=== PATIENT | male | born 1975 ===

== ENCOUNTER 2016-05-31 03:40 | Inpatient (IN) | payer MEDICAID, OTHER ==
--- NOTE | 2016-05-31 04:10 | C.PDOC ---
Addendum entered and electronically signed by Mary Manning PA 05/31/16 07 :26: Addendum Addendum: 05/31/16 07:05 Received s/o to f/u abdominal ultrasound and re-evaluate pt. Original Note: History Of Present Illness 41 year old patient presents to the ED complaining of epigastric and RUQ pain since yesterday. Patient currently denies nausea, vomiting, diarrhea or urinary symptoms. Pt reports pancreatitis in 2007 and states this pain feels simlar. Time Seen by Provider: 05/31/16 04:06 Chief Complaint (Nursing): Abdominal Pain History Per: Patient History/Exam Limitations: no limitations Onset/Duration Of Symptoms: Days (1) Current Symptoms Are (Timing): Still Present Context: Other Severity: Mild Pain Scale Rating Of: 3 Quality Of Discomfort: "Pain" Exacerbating Factors: None Alleviating Factors: None Last Bowel Movement: Today Recent travel outside of the [place]: No Past Medical History Reviewed: Historical Data, Nursing Documentation, Vital Signs Vital Signs: Last Vital Signs Temp 98.4 F 05/31/16 06:46 Pulse 93 H 05/31/16 06:46 Resp 18 05/31/16 06:46 BP 148/88 05/31/16 06:46 Pulse Ox 95 05/31/16 06:46 Surgical History: Appendectomy (2000) Family History: States: Unknown Family Hx - Social History Hx Alcohol Use: Yes Hx Substance Use: No - Immunization History Hx Tetanus Toxoid Vaccination: No Hx Influenza Vaccination: No Hx Pneumococcal Vaccination: No Review Of Systems Except As Marked, All Systems Reviewed And Found Negative. Gastrointestinal: Positive for: Abdominal Pain (epigastric and RUQ). Negative for: Nausea, Vomiting, Diarrhea Genitourinary: Negative for: Dysuria Physical Exam - Physical Exam Appears: Non-toxic, No Acute Distress Skin: Warm, Dry Eye(s): bilateral: Normal Inspection Ear(s): Bilateral: Normal Nose: Normal Throat: Normal Chest: Symmetrical Cardiovascular: Rhythm Regular Respiratory: Normal Breath Sounds, No Rales, No Rhonchi, No Wheezing Gastrointestinal/Abdominal: Soft, Tenderness (epigastric, RUQ), No Distention, No Guarding, No Rebound, Other ((+)mid-abdominal scar post appendectomy (-) Mcneil's sign) Back: No CVA Tenderness Extremity: Normal ROM Neurological/Psych: Oriented x3, Normal Speech, Normal Cognition Gait: Steady ED Course And Treatment - Laboratory Results Result Diagrams: 05/31/16 06:19 O2 Sat by Pulse Oximetry: 95 (RA) Progress Note: Labs ordered. Pepcid given. Patietn is comfortable and sleeping. Patient feels improvement of abdominal pain. Patient is discharged and instructed to follow up with PMD. Return if symptoms worsen. Disposition - Disposition Disposition: HOME/ ROUTINE Disposition Time: 06:54 Condition: STABLE - Clinical Impression Clinical Impression: Upper abdominal pain - PA / STAFF REGISTERED NURSE / Resident Statement MD/DO has reviewed & agrees with the documentation as recorded. - Scribe Statement The provider has reviewed the documentation as recorded by the Scribe Jeanette Osborn All medical record entries made by the Scribe were at my direction and personally dictated by me. I have reviewed the chart and agree that the record accurately reflects my personal performance of the history, physical exam, medical decision making, and the department course for this patient. I have also personally directed, reviewed, and agree with the discharge instructions and disposition. Physician Patient Turnover Patient Signed Over To: Mary Manning Handoff Comments: Pending US and CBC
[2016-05-31 04:14] LABS: RBC URINE < 1 /hpf (0-3); URINE BILIRUBIN NEGATIVE (NEGATIVE); URINE BLOOD NEGATIVE (NEGATIVE); URINE COLOR Yellow (YELLOW); URINE GLUCOSE (UA) 3+ mg/dL (Normal); URINE KETONE 2+ mg/dL (NEGATIVE); URINE LEUKOCYTE ESTERASE NEG Leu/uL (Negative); URINE PROTEIN 1+ mg/dL (NEGATIVE); URINE UROBILINOGEN NORMAL mg/dL (0.2-1.0); WBC URINE 1 /hpf (0-5)
[2016-05-31 04:44] LABS: CHLORIDE 94 mmol/L (98-107); POTASSIUM 3.7 mmol/L (3.6-5.2); SODIUM 128 mmol/L (132-148)
[2016-05-31 04:46] LABS: AST/SGOT 14 U/L (17-59); BILIRUBIN,TOTAL 1.4 mg/dL (0.2-1.3); CARBON DIOXIDE 16 mmol/L (22-30); GFR AFRICAN-AMERICAN > 60
[2016-05-31 04:47] LABS: ALB/GLOB RATIO 0.6 (1.0-2.1); ALKALINE PHOSPHATASE 209 U/L (38-126); ALT/SGPT 35 U/L (21-72); BLOOD UREA NITROGEN 12 mg/dL (9-20); CALCIUM 8.7 mg/dl (8.6-10.4); GLUCOSE,RANDOM 257 mg/dL (75-110); TOTAL PROTEIN 7.3 g/dL (6.3-8.3)
[2016-05-31 05:39] LABS: BASO # 0.1 K/uL (0.0-0.2); EOS # 0.3 K/uL (0.0-0.7); WHITE BLOOD COUNT 15.1 K/uL (4.8-10.8)
[2016-05-31] MEDS ORDERED: Sodium Chloride 0.9% 1,000 ML ONE ×2 (05:57→08:44)
[2016-05-31] MEDS ORDERED: Sodium Chloride 0.9% 1,000 ML IV ONE ×3 (05:58→08:15)
[2016-05-31 06:28] LABS: CHLORIDE 94 mmol/L (98-107)
[2016-05-31 06:29] LABS: POTASSIUM 3.7 mmol/L (3.6-5.2); SODIUM 130 mmol/L (132-148)
[2016-05-31 06:31] LABS: BILIRUBIN,TOTAL 1.2 mg/dL (0.2-1.3); GFR AFRICAN-AMERICAN > 60
[2016-05-31 06:32] LABS: ALB/GLOB RATIO 0.8 (1.0-2.1); ALKALINE PHOSPHATASE 175 U/L (38-126); ALT/SGPT 23 U/L (21-72); AST/SGOT 12 U/L (17-59); BLOOD UREA NITROGEN 10 mg/dL (9-20); CALCIUM 7.7 mg/dl (8.6-10.4); CARBON DIOXIDE 17 mmol/L (22-30); GLUCOSE,RANDOM 224 mg/dL (75-110); TOTAL PROTEIN 6.5 g/dL (6.3-8.3)
[2016-05-31] MEDS ORDERED: Aluminum Hydroxide/Magnesium Hydroxide Susp (30 mL) PO STA (06:52)
[2016-05-31 06:57] LABS: BASO % 0.7 % (0.0-2.0); HEMATOCRIT 37.2 % (35.0-51.0); LYMPH % 13.4 % (20.0-40.0); MEAN CELL VOLUME 92.6 fL (80.0-94.0); MEAN CORPUSCULAR HEMOGLOBIN 32.4 pg (27.0-31.0); MEAN PLATELET VOLUME 8.6 fL (7.2-11.7); MONO # 1.1 K/uL (0.0-0.8); MONO % 7.3 % (0.0-10.0); NRBC % 0.3 % (0.0-2.0); RED CELL DISTRIBUTION WIDTH 12.3 % (11.5-14.5)
[2016-05-31] MEDS ORDERED: Aluminum Hydroxide/Magnesium Hydroxide Susp (30 mL) ONE (07:02)
[2016-05-31 08:01] LABS: VENOUS BLOOD GAS BASE EXCESS 1.5 mmol/L (0.0-2.0); VENOUS BLOOD GAS PCO2 46 mmHg (40-60); VENOUS BLOOD PH 7.38 (7.32-7.43)
--- NOTE | 2016-05-31 08:59 | US ---
Right upper quadrant abdominal ultrasound History: Right upper quadrant abdominal pain. Technique: Real-time sonography was performed through the right upper quadrant of the abdomen. Findings: Liver: 18.5 centimeters in length. Prominent. Increased echogenicity suggestive for fatty infiltration. Gallbladder appears preserved. Common bile duct measures 3.2 millimeters, within normal limits. Pancreas not well visualized. Visualized aorta and IVC are grossly preserved. Right kidney: 12.4 x 5.1 x 6.6 centimeters, within normal limits. Impression: Prominent and echogenic liver which may represent fatty infiltration. Clinical correlation. Pancreas not well visualized.
[2016-05-31 11:20] LABS: CHLORIDE 99 mmol/L (98-107); POTASSIUM 3.7 mmol/L (3.6-5.2); SODIUM 131 mmol/L (132-148)
[2016-05-31 11:22] LABS: AST/SGOT 12 U/L (17-59); CARBON DIOXIDE 14 mmol/L (22-30); GFR AFRICAN-AMERICAN > 60
[2016-05-31 11:23] LABS: ALB/GLOB RATIO 0.7 (1.0-2.1); ALKALINE PHOSPHATASE 153 U/L (38-126); ALT/SGPT 21 U/L (21-72); BLOOD UREA NITROGEN 8 mg/dL (9-20); CALCIUM 7.6 mg/dl (8.6-10.4); GLUCOSE,RANDOM 223 mg/dL (75-110); TOTAL PROTEIN 6.5 g/dL (6.3-8.3)
[2016-05-31 11:38] LABS: ABG ALLEN TEST POS; DRAW SITE RR
[2016-05-31] MEDS: Sodium Chloride 0.9% 1,000 ML IV SCH ×2 (13:50→21:25)
[2016-05-31] MEDS ORDERED: Iohexol 240 (50 ml) ONE (14:12)
[2016-05-31] MEDS ORDERED: Iohexol 240 (50 ml) PO ONE (14:30)
[2016-05-31] MEDS ORDERED: Iohexol 350mg/ml 100 ML ONE (15:35)
[2016-05-31] MEDS: (Novolin R) Insulin Human Regular 100 units/ml vial SC SCH ×3 (16:48→21:36)
--- NOTE | 2016-05-31 16:56 | CP.PCM.HP ---
<Meek Torres - Last Filed: 05/31/16 16:53> History of Present Illness - History of Present Illness History of Present Illness: Pt is a 41 year old male with PMHx of Type 2 DM complaining of LUQ that began Monday evening. Patient states pain is intermittent and currently 6/10. Pain is worsened with movement, eating, and drinking and relieved w/ laying supine. Patient has not eaten since Monday evening due to pain. Patient states he has had recurrent episodes of nausea following ingestion of solids and liquids and one episode of vomiting of yellow colored emesis. Patient relates this is the same presentation of symptoms when he was previously diagnosed with acute pancreatitis in 2007. Pt has a hx of Etoh abuse but reports minimal intake currently. He states that he had 6 beers on the preceding Monday and 2 beers the Monday symptoms began. Denies any fevers, chills, chest pain, visual changes , palpitations, sob or diarrhea. PMHx - see above PSHx - appendectomy, right little toe surgery Allergies - PCN Hospitalizations - 5x for DM exacerbations Medications - Insulin, Metformin 850mg QD Social - Former heavy alcohol user with reduced consumption 6 years ago, 2 cigarettes daily, denies any drug use, immigrated from [place] (unknown specific date) Present on Admission - Present on Admission Any Indicators Present on Admission: No Review of Systems - Constitutional Constitutional: absent: Chills, Fever - EENT Eyes: absent: Blurred Vision, Pain - Cardiovascular Cardiovascular: absent: Chest Pain, Palpitations - Respiratory Respiratory: absent: Cough, Dyspnea - Gastrointestinal Gastrointestinal: Abdominal Pain (LUQ), Nausea, Vomiting. absent: Diarrhea - Genitourinary Genitourinary: absent: Urinary Frequency, Urinary Urgency - Musculoskeletal Musculoskeletal: absent: Muscle Weakness, Stiffness - Integumentary Integumentary: absent: Pruritus, Rash - Neurological Neurological: absent: Numbness, Tingling Past Patient History - Past Social History Smoking Status: Never Smoked - ENDOCRINE/METABOLIC Hx Diabetes Mellitus Type 2: Yes - PSYCHIATRIC Hx Substance Use: No - SURGICAL HISTORY Hx Appendectomy: Yes (2000) - ANESTHESIA Hx Anesthesia: Yes Hx Anesthesia Reactions: No Hx Malignant Hyperthermia: No Meds Allergies/Adverse Reactions: Allergies Allergy/AdvReac Type Severity Reaction Status Date / Time Penicillins Allergy Verified 05/31/16 04:02 Physical Exam - Constitutional Appears: Non-toxic, No Acute Distress - Head Exam Head Exam: ATRAUMATIC, NORMOCEPHALIC - Eye Exam Eye Exam: PERRL, Scleral icterus (mild) - ENT Exam ENT Exam: Mucous Membranes Moist - Respiratory Exam Respiratory Exam: Clear to Auscultation Bilateral, NORMAL BREATHING PATTERN - Cardiovascular Exam Cardiovascular Exam: +S1, +S2 - GI/Abdominal Exam GI & Abdominal Exam: Normal Bowel Sounds, Soft, Tenderness (diffuse but more so over LUQ). absent: Distended - Extremities Exam Extremities exam: Positive for: normal capillary refill, normal inspection - Neurological Exam Neurological exam: Alert, Oriented x3 - Skin Skin Exam: Dry, Warm Results - Vital Signs Recent Vital Signs: Last Vital Signs Temp 98.7 F 05/31/16 16:15 Pulse 93 H 05/31/16 16:15 Resp 20 05/31/16 16:15 BP 126/81 05/31/16 16:15 Pulse Ox 96 05/31/16 16:15 - Labs Result Diagrams: 05/31/16 04:28 05/31/16 11:09 Labs: Laboratory Results - last 24 hr 05/31/16 05/31/16 11:09 11:35 Puncture Site Rr pCO2 37 pO2 81 HCO3 24.3 ABG pH 7.41 ABG Total CO2 24.6 ABG Base Excess -0.8 Gigi Test Pos ABG Potassium 3.4 L A-a O2 Difference 22.0 Respiratory Index 0.3 Glucose 254 H Lactate 0.7 FiO2 21.0 Sodium 131 L 137.0 Potassium 3.7 Chloride 99 109.0 H Carbon Dioxide 14 L Anion Gap 22 H BUN 8 L Creatinine 0.5 L Est GFR ( Amer) > 60 Est GFR (Non-Af Amer) > 60 Random Glucose 223 H Calcium 7.6 L Total Bilirubin 1.0 AST 12 L ALT 21 Alkaline Phosphatase 153 H Total Protein 6.5 Albumin 2.7 L Globulin 3.8 Albumin/Globulin Ratio 0.7 L Arterial Blood Potassium 3.4 L Assessment & Plan - Assessment and Plan (Free Text) Assessment: Abdominal pain - Hx of acute pancreatitis, lipase 94 on admission - tender to palpation over LUQ - Abd US 05/31 - fatty liver, pancreas not well visualized - CT abdomen and pelvis - pending read - Clear liquid diet - Zofran PRN - NS at 150 cc/hr - Morphine 2mg PRN - AM labs - f/u Hx of DM - A1C in AM - f/u - HISS - Accuchecks PPX - Lovenox - Protonix <Shaheed Luo M - Last Filed: 06/01/16 15:43> Results - Vital Signs Recent Vital Signs: Last Vital Signs Temp 98.0 F 06/01/16 15:14 Pulse 80 06/01/16 15:14 Resp 20 06/01/16 15:14 BP 126/80 06/01/16 15:14 Pulse Ox 98 06/01/16 15:14 - Labs Result Diagrams: 06/01/16 06:12 06/01/16 06:12 Labs: Laboratory Results - last 24 hr 05/31/16 05/31/16 06/01/16 17:13 20:59 06:12 WBC 15.2 H RBC 4.34 L Hgb 13.9 Hct 40.9 MCV 94.2 H MCH 32.0 H MCHC 34.0 RDW 12.1 Plt Count 243 MPV 9.0 Neut % (Auto) 73.8 Lymph % (Auto) 17.7 L Hamblen % (Auto) 6.3 Eos % (Auto) 1.7 Baso % (Auto) 0.5 Neut # 11.2 H Lymph # 2.7 Hamblen # 0.9 H Eos # 0.3 Baso # 0.1 Sodium 136 Potassium 4.2 Chloride 95 L Carbon Dioxide 15 L Anion Gap 30 H BUN 6 L Creatinine 0.5 L Est GFR ( Amer) > 60 Est GFR (Non-Af Amer) > 60 POC Glucose (mg/dL) 217 H 296 H Random Glucose 214 H Hemoglobin A1c 11.0 H Calcium 8.0 L Total Bilirubin 1.3 AST 12 L ALT 13 L D Alkaline Phosphatase 124 Total Protein 7.0 Albumin 3.3 L D Globulin 3.6 Albumin/Globulin Ratio 0.9 L Triglycerides 9471 H Cholesterol 1037 H LDL Cholesterol Direct 311 H HDL Cholesterol 25 L 06/01/16 06/01/16 06:17 11:28 WBC RBC Hgb Hct MCV MCH MCHC RDW Plt Count MPV Neut % (Auto) Lymph % (Auto) Hamblen % (Auto) Eos % (Auto) Baso % (Auto) Neut # Lymph # Hamblen # Eos # Baso # Sodium Potassium Chloride Carbon Dioxide Anion Gap BUN Creatinine Est GFR ( Amer) Est GFR (Non-Af Amer) POC Glucose (mg/dL) 228 H 226 H Random Glucose Hemoglobin A1c Calcium Total Bilirubin AST ALT Alkaline Phosphatase Total Protein Albumin Globulin Albumin/Globulin Ratio Triglycerides Cholesterol LDL Cholesterol Direct HDL Cholesterol Attending/Attestation - Attestation I have personally seen and examined this patient.: Yes I have fully participated in the care of the patient.: Yes I have reviewed all pertinent clinical information: Yes Notes (Text): 06/01/16 15:42 Patient was seen and examined at bedside with the resident Complains of abdominal pain We will obtain a CT scan of the abdomen and pelvis with IV contrast to rule out acute pancreatitis We'll start the patient on IV fluids and clear liquid diet for now We will continue pain management as needed Discussed the plan of care with the resident and agree with the above history and physical and assessment/plan by the resident.
--- NOTE | 2016-05-31 18:16 | CT ---
PROCEDURE: CT Abdomen and Pelvis with contrast HISTORY: abdominal pain, hx of pancreatitis COMPARISON: None. TECHNIQUE: Contrast dose: 100 mL Omnipaque 350 Radiation dose: Total exam DLP = 721.21 mGy-cm. FINDINGS: LOWER THORAX: Unremarkable. LIVER: Mild hepatomegaly. The liver measures 20 cm craniocaudal. Diffuse mildly diminished attenuation consistent with fatty infiltration. No mass. No biliary dilatation. GALLBLADDER AND BILE DUCTS: Unremarkable. PANCREAS: Stranding of the peripancreatic fat about the head and proximal body consistent with acute pancreatitis. No teo peripancreatic fluid. No pancreatic mass or ductal dilatation. SPLEEN: Unremarkable. ADRENALS: Unremarkable. No mass. KIDNEYS AND URETERS: Unremarkable. No hydronephrosis. No solid mass. VASCULATURE: Unremarkable. No aortic aneurysm. BOWEL: No bowel obstruction. Mild mural thickening of gastric antrum and duodenum, likely secondary to adjacent pancreatitis. APPENDIX: Not identified. No secondary findings to suggest acute appendicitis. PERITONEUM: Unremarkable. No free fluid. No free air. LYMPH NODES: Unremarkable. No enlarged lymph nodes. BLADDER: Unremarkable. REPRODUCTIVE: Normal prostate BONES: No acute fracture. OTHER FINDINGS: None. IMPRESSION: Findings consistent with acute pancreatitis. No peripancreatic fluid collection. No evidence of pancreatic necrosis. Mild hepatomegaly with fatty infiltration of the liver. No other significant abnormality.
[2016-06-01] MEDS: Sodium Chloride 0.9% 1,000 ML IV SCH ×5 (03:30→22:48)
[2016-06-01 06:30] LABS: CHLORIDE 95 mmol/L (98-107)
[2016-06-01 06:31] LABS: POTASSIUM 4.2 mmol/L (3.6-5.2); SODIUM 136 mmol/L (132-148)
[2016-06-01 06:33] LABS: ALB/GLOB RATIO 0.9 (1.0-2.1); ALKALINE PHOSPHATASE 124 U/L (38-126); AST/SGOT 12 U/L (17-59); BILIRUBIN,TOTAL 1.3 mg/dL (0.2-1.3); BLOOD UREA NITROGEN 6 mg/dL (9-20); CARBON DIOXIDE 15 mmol/L (22-30); GFR AFRICAN-AMERICAN > 60; GLUCOSE,RANDOM 214 mg/dL (75-110)
[2016-06-01 06:34] LABS: ALT/SGPT 13 U/L (21-72)
[2016-06-01 06:49] LABS: CHOLESTEROL 1037 mg/dL (0-199)
[2016-06-01 07:12] LABS: BASO # 0.1 K/uL (0.0-0.2); BASO % 0.5 % (0.0-2.0); EOS # 0.3 K/uL (0.0-0.7); EOS % 1.7 % (0.0-4.0); HEMATOCRIT 40.9 % (35.0-51.0); LYMPH # 2.7 K/uL (1.0-4.3); LYMPH % 17.7 % (20.0-40.0); MEAN CELL VOLUME 94.2 fL (80.0-94.0); MONO # 0.9 K/uL (0.0-0.8); MONO % 6.3 % (0.0-10.0); NRBC % 0.1 % (0.0-2.0); RED CELL DISTRIBUTION WIDTH 12.1 % (11.5-14.5); WHITE BLOOD COUNT 15.2 K/uL (4.8-10.8)
[2016-06-01] MEDS: (Novolin R) Insulin Human Regular 100 units/ml vial SC SCH ×4 (08:46→22:31)
[2016-06-01] MEDS: Enoxaparin 40 mg Syringe SC SCH (10:24)
--- NOTE | 2016-06-01 11:36 | CP.PCM.PN ---
<Meek Torres - Last Filed: 06/01/16 11:29> Subjective - Date & Time of Evaluation Date of Evaluation: 06/01/16 Time of Evaluation: 11:29 - Subjective Subjective: PGY-1 note for medicine service. Pt seen and examined at bedside. Pt states that he feels better today with less abdominal pain. He was able to tolerate some of his liquid diet. He states he became a little nauseous after he drank some last night but did not become nauseous this morning. Denies fevers, chills, chest pain, sob, nausea or vomiting. Objective - Vital Signs/Intake and Output Vital Signs (last 24 hours): Temp Pulse Resp BP Pulse Ox 98.3 F 81 18 128/80 97 06/01/16 09:02 06/01/16 09:02 06/01/16 09:02 06/01/16 09:02 06/01/16 09:02 Intake and Output: 06/01/16 06/01/16 06:59 18:59 Intake Total 1200 Balance 1200 - Medications Medications: Current Medications Acetaminophen (Tylenol 325mg Tab) 650 mg PO Q6 PRN PRN Reason: Fever >100.4 F Enoxaparin Sodium (Lovenox) 40 mg SC DAILY [facility] Last Admin: 06/01/16 10:24 Dose: 40 mg Sodium Chloride (Sodium Chloride 0.9%) 1,000 mls @ 150 mls/hr IV .Q6H40M [facility] Last Admin: 06/01/16 11:27 Dose: 150 mls/hr Influenza Virus Vaccine (Afluria) 45 mcg IM .ONCE ONE Stop: 06/02/16 10:01 Insulin Human Regular (Novolin R) 0 unit SC ACHS [facility] PRN Reason: Protocol Last Admin: 06/01/16 08:46 Dose: 4 unit Morphine Sulfate (Morphine) 2 mg IVP Q4H PRN PRN Reason: Pain, severe (8-10) Last Admin: 05/31/16 20:07 Dose: 2 mg Ondansetron HCl (Zofran Inj) 4 mg IVP Q6 PRN PRN Reason: Nausea/Vomiting Pantoprazole Sodium (Protonix Inj) 40 mg IVP DAILY [facility] Last Admin: 06/01/16 10:17 Dose: 40 mg Pneumococcal Polyvalent Vaccine (Pneumovax 23 Vaccine) 0.5 ml IM .ONCE ONE Stop: 06/02/16 10:01 - Labs Labs: 06/01/16 06:12 06/01/16 06:12 - Constitutional Appears: Non-toxic, No Acute Distress - Head Exam Head Exam: ATRAUMATIC, NORMOCEPHALIC - Eye Exam Eye Exam: Normal appearance Pupil Exam: PERRL - ENT Exam ENT Exam: Mucous Membranes Moist - Respiratory Exam Respiratory Exam: Clear to Ausculation Bilateral, NORMAL BREATHING PATTERN - Cardiovascular Exam Cardiovascular Exam: +S1, +S2 - GI/Abdominal Exam GI & Abdominal Exam: Soft, Tenderness (mild epigastric), Normal Bowel Sounds - Neurological Exam Neurological Exam: Alert, Awake - Skin Skin Exam: Dry, Warm Assessment and Plan - Assessment and Plan (Free Text) Assessment: Abdominal pain - Secondary to acute pancreatitis - Abdominal pain improved to day, tolerating some liquid diet - NS at 200 cc/hr - Continue to monitor and advance diet as tolerated Imaging - CT abdomen and pelvis - Findings consistent with acute pancreatitis. No peripancreatic fluid collection. No evidence of pancreatic necrosis. Mild hepatomegaly with fatty infiltration of the liver. No other significant abnormality. - Abd US 05/31 - fatty liver, pancreas not well visualized - Zofran PRN - Morphine 2mg PRN - AM labs - f/u Hx of DM - A1C in AM - 11.0 - HISS - Accuchecks - 200's PPX - Lovenox - Protonix <Shaheed Luo M - Last Filed: 06/01/16 17:50> Objective - Vital Signs/Intake and Output Vital Signs (last 24 hours): Temp Pulse Resp BP Pulse Ox 98.0 F 80 20 126/80 98 06/01/16 15:14 06/01/16 16:34 06/01/16 15:14 06/01/16 15:14 06/01/16 15:14 Intake and Output: 06/01/16 06/01/16 06:59 18:59 Intake Total 1200 1800 Balance 1200 1800 - Medications Medications: Current Medications Acetaminophen (Tylenol 325mg Tab) 650 mg PO Q6 PRN PRN Reason: Fever >100.4 F Enoxaparin Sodium (Lovenox) 40 mg SC DAILY [facility] Last Admin: 06/01/16 10:24 Dose: 40 mg Sodium Chloride (Sodium Chloride 0.9%) 1,000 mls @ 200 mls/hr IV .Q5H [facility] Last Admin: 06/01/16 17:26 Dose: 200 mls/hr Influenza Virus Vaccine (Afluria) 45 mcg IM .ONCE ONE Stop: 06/02/16 10:01 Insulin Human Regular (Novolin R) 0 unit SC ACHS [facility] PRN Reason: Protocol Last Admin: 06/01/16 17:25 Dose: Not Given Morphine Sulfate (Morphine) 2 mg IVP Q4H PRN PRN Reason: Pain, severe (8-10) Last Admin: 05/31/16 20:07 Dose: 2 mg Ondansetron HCl (Zofran Inj) 4 mg IVP Q6 PRN PRN Reason: Nausea/Vomiting Pantoprazole Sodium (Protonix Inj) 40 mg IVP DAILY [facility] Last Admin: 06/01/16 10:17 Dose: 40 mg Pneumococcal Polyvalent Vaccine (Pneumovax 23 Vaccine) 0.5 ml IM .ONCE ONE Stop: 06/02/16 10:01 - Labs Labs: 06/01/16 06:12 06/01/16 06:12 Attending/Attestation - Attestation I have personally seen and examined this patient.: Yes I have fully participated in the care of the patient.: Yes I have reviewed all pertinent clinical information, including history, physical exam and plan: Yes Notes (Text): 06/01/16 17:48 Patient was seen and examined at bedside with the resident Abdominal pain is improving Patient is tolerating clear liquid diet We'll continue IV fluids and pain management Discussed the plan of care with the resident and agree with the above history and physical and assessment/plan by the resident
[2016-06-02 06:23] LABS: MEAN PLATELET VOLUME 8.4 fL (7.2-11.7); PLATELET COUNT 269 K/uL (130-400); WHITE BLOOD COUNT 14.7 K/uL (4.8-10.8)
[2016-06-02 06:49] LABS: CHLORIDE 96 mmol/L (98-107)
[2016-06-02 06:50] LABS: POTASSIUM 4.5 mmol/L (3.6-5.2); SODIUM 137 mmol/L (132-148)
[2016-06-02 06:52] LABS: BILIRUBIN,TOTAL 1.8 mg/dL (0.2-1.3); CARBON DIOXIDE 14 mmol/L (22-30); GFR AFRICAN-AMERICAN > 60; TOTAL PROTEIN 7.3 g/dL (6.3-8.3)
[2016-06-02 06:53] LABS: ALKALINE PHOSPHATASE 110 U/L (38-126); ALT/SGPT 16 U/L (21-72); AST/SGOT 18 U/L (17-59); BLOOD UREA NITROGEN 5 mg/dL (9-20); CALCIUM 8.4 mg/dl (8.6-10.4); GLUCOSE,RANDOM 236 mg/dL (75-110)
[2016-06-02 07:26] LABS: HEMATOCRIT 42.1 % (35.0-51.0); MEAN CELL VOLUME 95.7 fL (80.0-94.0); MEAN CORPUSCULAR HEMOGLOBIN 32.4 pg (27.0-31.0); MEAN CORPUSCULAR HGB CONC 33.8 g/dL (33.0-37.0)
[2016-06-02 07:28] LABS: RED CELL DISTRIBUTION WIDTH 12.3 % (11.5-14.5)
[2016-06-02] MEDS: (Novolin R) Insulin Human Regular 100 units/ml vial SC SCH ×4 (08:36→23:19)
[2016-06-02] MEDS: Enoxaparin 40 mg Syringe SC SCH (09:54)
[2016-06-02] MEDS ORDERED: Pneumococcal 23-Valent Vaccine IM ONE (10:00)
[2016-06-02] MEDS ORDERED: Influenza Virus Vaccine 45 mcg/0.5 ml Syr IM ONE (10:00)
[2016-06-02 10:57] LABS: LYMPH # 0.6 K/uL (1.0-4.3)
[2016-06-02 10:59] LABS: NEUTROPHIL 90 % (50-75); TOTAL CELLS COUNTED 100
[2016-06-02] MEDS: Sodium Chloride 0.9% 1,000 ML IV SCH ×3 (13:00→19:58)
--- NOTE | 2016-06-02 14:29 | CP.PCM.PN ---
<Meek Torres - Last Filed: 06/02/16 14:21> Subjective - Date & Time of Evaluation Date of Evaluation: 06/02/16 Time of Evaluation: 14:21 - Subjective Subjective: PGY-1 note for medicine service Pt seen and examined at bedside. Pt complains of more abdominal pain today. However, pt also ate a piece of sandwich that someone put in front of him last night. He reports vomiting after eating the piece. Denies any fevers, chills, chest pain, sob. Objective - Vital Signs/Intake and Output Vital Signs (last 24 hours): Temp Pulse Resp BP Pulse Ox 99.1 F 102 H 20 126/74 97 06/02/16 13:12 06/02/16 13:12 06/02/16 13:12 06/02/16 13:12 06/02/16 13:12 - Medications Medications: Current Medications Acetaminophen (Tylenol 325mg Tab) 650 mg PO Q6 PRN PRN Reason: Fever >100.4 F Enoxaparin Sodium (Lovenox) 40 mg SC DAILY [facility] Last Admin: 06/02/16 09:54 Dose: 40 mg Fenofibrate (Tricor) 145 mg PO QPM [facility] Sodium Chloride (Sodium Chloride 0.9%) 1,000 mls @ 250 mls/hr IV .Q4H [facility] Last Admin: 06/02/16 13:00 Dose: 250 mls/hr Influenza Virus Vaccine (Afluria) 45 mcg IM .ONCE ONE Stop: 06/03/16 10:01 Insulin Human Regular (Novolin R) 0 unit SC ACHS [facility] PRN Reason: Protocol Last Admin: 06/02/16 13:06 Dose: 4 unit Morphine Sulfate (Morphine) 2 mg IVP Q4H PRN PRN Reason: Pain, severe (8-10) Last Admin: 06/02/16 13:14 Dose: 2 mg Ondansetron HCl (Zofran Inj) 4 mg IVP Q6 PRN PRN Reason: Nausea/Vomiting Last Admin: 06/01/16 22:32 Dose: 4 mg Pantoprazole Sodium (Protonix Inj) 40 mg IVP DAILY [facility] Last Admin: 06/02/16 09:54 Dose: 40 mg Pneumococcal Polyvalent Vaccine (Pneumovax 23 Vaccine) 0.5 ml IM .ONCE ONE Stop: 03/31/17 10:01 Rosuvastatin Calcium (Crestor) 20 mg PO HS [facility] - Constitutional Appears: Non-toxic, No Acute Distress - Head Exam Head Exam: ATRAUMATIC, NORMOCEPHALIC - ENT Exam ENT Exam: Mucous Membranes Moist - Respiratory Exam Respiratory Exam: Clear to Ausculation Bilateral, NORMAL BREATHING PATTERN - Cardiovascular Exam Cardiovascular Exam: +S1, +S2 - GI/Abdominal Exam GI & Abdominal Exam: Soft, Tenderness, Normal Bowel Sounds - Neurological Exam Neurological Exam: Alert, Awake - Skin Skin Exam: Dry, Warm Assessment and Plan - Assessment and Plan (Free Text) Assessment: Abdominal pain - Secondary to acute pancreatitis - Abdominal pain worse today - Repeat Lipase tomorrow - NS at 250 cc/hr - Continue to monitor and advance diet as tolerated Imaging - CT abdomen and pelvis - Findings consistent with acute pancreatitis. No peripancreatic fluid collection. No evidence of pancreatic necrosis. Mild hepatomegaly with fatty infiltration of the liver. No other significant abnormality. - Abd US 05/31 - fatty liver, pancreas not well visualized - Zofran PRN - Morphine 2mg PRN - Trigs > 9000, Total cholesterol > 1000 - Will repeat lipid panel tomorrow Consult endo (Cam) - f/u results Consult GI (Preeti) - f/u results Elevated triglycerides/cholesterol - Trigs > 9000, Total cholesterol > 1000 - Will repeat lipid panel tomorrow - Tricor 145mg Q HS - Crestor 20mg Q HS Hx of DM - A1C in AM - 11.0 - HISS - Accuchecks - 200's PPX - Lovenox - Protonix <Shaheed Luo - Last Filed: 06/02/16 16:58> Objective - Vital Signs/Intake and Output Vital Signs (last 24 hours): Temp Pulse Resp BP Pulse Ox 100.5 F H 108 H 20 134/83 97 06/02/16 15:43 06/02/16 15:43 06/02/16 15:43 06/02/16 15:43 06/02/16 15:43 Intake and Output: 06/02/16 06/02/16 06:59 18:59 Intake Total 1999 Balance 1999 - Medications Medications: Current Medications Acetaminophen (Tylenol 325mg Tab) 650 mg PO Q6 PRN PRN Reason: Fever >100.4 F Enoxaparin Sodium (Lovenox) 40 mg SC DAILY [facility] Last Admin: 06/02/16 09:54 Dose: 40 mg Fenofibrate (Tricor) 145 mg PO QPM [facility] Sodium Chloride (Sodium Chloride 0.9%) 1,000 mls @ 250 mls/hr IV .Q4H [facility] Last Admin: 06/02/16 16:04 Dose: 250 mls/hr Influenza Virus Vaccine (Afluria) 45 mcg IM .ONCE ONE Stop: 06/03/16 10:01 Insulin Human NPH (Novolin N) 12 unit SC Q12H [facility] Insulin Human Regular (Novolin R) 0 unit SC ACHS [facility] PRN Reason: Protocol Morphine Sulfate (Morphine) 2 mg IVP Q4H PRN PRN Reason: Pain, severe (8-10) Last Admin: 06/02/16 13:14 Dose: 2 mg Ondansetron HCl (Zofran Inj) 4 mg IVP Q6 PRN PRN Reason: Nausea/Vomiting Last Admin: 06/01/16 22:32 Dose: 4 mg Pantoprazole Sodium (Protonix Inj) 40 mg IVP DAILY [facility] Last Admin: 06/02/16 09:54 Dose: 40 mg Pneumococcal Polyvalent Vaccine (Pneumovax 23 Vaccine) 0.5 ml IM .ONCE ONE Stop: 06/03/16 10:01 Rosuvastatin Calcium (Crestor) 20 mg PO [facility] Attending/Attestation - Attestation I have personally seen and examined this patient.: Yes I have fully participated in the care of the patient.: Yes I have reviewed all pertinent clinical information, including history, physical exam and plan: Yes Notes (Text): 06/02/16 16:58 Patient was seen and examined at bedside with the resident Patient still complains of abdominal pain We'll make the patient nothing by mouth and keep him on IV fluids at 250 mL/h Patient was noted to have extremely high triglycerides and cholesterol levels We'll start the patient on TriCor and Crestor and we'll request a gastroenterology and endocrinology evaluation Discussed the plan of care with the resident and agree with the above assessment and plan by the resident
--- NOTE | 2016-06-02 21:10 | CP.PCM.CON ---
History of Present Illness - History of Present Illness History of Present Illness: I was never notified about the consult. I just see the patient on my computer list. GI service consult for pancreatitis. Pt reports chronic alcohol abuse. Recent alcohol binge afew days ago. Reports epig pain for 3 days. Severe before. Less now. Denies back pain, fever, SOB. Review of Systems - Constitutional Constitutional: absent: Fever, Weight Loss, Weakness - EENT Eyes: absent: Photophobia - Cardiovascular Cardiovascular: absent: Chest Pain, Dyspnea - Respiratory Respiratory: absent: Cough, Dyspnea, Hemoptysis, Wheezing - Gastrointestinal Gastrointestinal: Abdominal Pain. absent: Diarrhea, Dysphagia, Hematemesis, Hematochezia, Loose Stools, Melena, Nausea, Vomiting - Genitourinary Genitourinary: absent: Hematuria - Musculoskeletal Musculoskeletal: absent: Muscle Cramps - Integumentary Integumentary: absent: Jaundice - Neurological Neurological: absent: Convulsions - Psychiatric Psychiatric: absent: Auditory Hallucinations Past Patient History - Past Medical History & Family History Past Medical History?: Yes - Past Social History Smoking Status: Current Some Days Smoker - CARDIAC Hx Cardiac Disorders: No - PULMONARY Hx Respiratory Disorders: No - NEUROLOGICAL Hx Neurological Disorder: No - HEENT Hx HEENT Problems: No - RENAL Hx Chronic Kidney Disease: No - ENDOCRINE/METABOLIC Hx Diabetes Mellitus Type 2: Yes - HEMATOLOGICAL/ONCOLOGICAL Hx Blood Disorders: No - INTEGUMENTARY Hx Dermatological Problems: No - MUSCULOSKELETAL/RHEUMATOLOGICAL Hx Back Pain: Yes (when working too much) Hx Falls: No - GASTROINTESTINAL Hx Gastrointestinal Disorders: No - GENITOURINARY/GYNECOLOGICAL Hx Genitourinary Disorders: No - PSYCHIATRIC Hx Psychophysiologic Disorder: No Hx Substance Use: No - SURGICAL HISTORY Hx Appendectomy: Yes (2000) Hx Orthopedic Surgery: Yes (R foot 04/2015) - ANESTHESIA Hx Anesthesia: Yes Hx Anesthesia Reactions: No Hx Malignant Hyperthermia: No Has any member of the family had a problem w/ anesthesia?: No Meds Allergies/Adverse Reactions: Allergies Allergy/AdvReac Type Severity Reaction Status Date / Time Penicillins Allergy Verified 05/31/16 04:02 - Medications Medications: Current Medications Acetaminophen (Tylenol 325mg Tab) 650 mg PO Q6 PRN PRN Reason: Fever >100.4 F Enoxaparin Sodium (Lovenox) 40 mg SC DAILY [facility] Last Admin: 06/02/16 09:54 Dose: 40 mg Fenofibrate (Tricor) 145 mg PO QPM [facility] Last Admin: 06/02/16 19:09 Dose: Not Given Sodium Chloride (Sodium Chloride 0.9%) 1,000 mls @ 250 mls/hr IV .Q4H [facility] Last Admin: 06/02/16 19:58 Dose: 250 mls/hr Influenza Virus Vaccine (Afluria) 45 mcg IM .ONCE ONE Stop: 06/03/16 10:01 Insulin Human NPH (Novolin N) 12 unit SC Q12H [facility] Insulin Human Regular (Novolin R) 0 unit SC ACHS [facility] PRN Reason: Protocol Last Admin: 06/02/16 18:56 Dose: 2 unit Morphine Sulfate (Morphine) 2 mg IVP Q4H PRN PRN Reason: Pain, severe (8-10) Last Admin: 06/02/16 19:14 Dose: 2 mg Ondansetron HCl (Zofran Inj) 4 mg IVP Q6 PRN PRN Reason: Nausea/Vomiting Last Admin: 06/01/16 22:32 Dose: 4 mg Pantoprazole Sodium (Protonix Inj) 40 mg IVP DAILY [facility] Last Admin: 06/02/16 09:54 Dose: 40 mg Pneumococcal Polyvalent Vaccine (Pneumovax 23 Vaccine) 0.5 ml IM .ONCE ONE Stop: 06/03/16 10:01 Rosuvastatin Calcium (Crestor) 20 mg PO HS [facility] Physical Exam - Constitutional Appears: Well - Respiratory Exam Respiratory Exam: Clear to Auscultation Bilateral - Cardiovascular Exam Cardiovascular Exam: RRR - GI/Abdominal Exam GI & Abdominal Exam: Normal Bowel Sounds, Soft, Tenderness. absent: Firm, Guarding, Mass Additional comments: Mild epig tenderness. - Extremities Exam Extremities exam: Negative for: calf tenderness, pedal edema - Neurological Exam Neurological exam: Alert, Oriented x3 - Psychiatric Exam Psychiatric exam: Normal Mood Results - Vital Signs Recent Vital Signs: Last Vital Signs Temp 100.5 F H 06/02/16 15:43 Pulse 108 H 06/02/16 15:43 Resp 20 06/02/16 15:43 BP 134/83 06/02/16 15:43 Pulse Ox 97 06/02/16 15:43 - Labs Result Diagrams: 06/02/16 06:06 06/02/16 06:06 Labs: Laboratory Results - last 24 hr 06/02/16 06/02/16 11:24 16:40 POC Glucose (mg/dL) 200 H 205 H Assessment & Plan (1) Upper abdominal pain Status: Acute (2) Pancreatitis Assessment and Plan: alcoholic pancreatitis. Consider hyperlipidemia as cause for pancreatiits. Ct shows pancreatitis REC; NPO, IV fluids >240 cc/hr. Follow CBC, CMP, lipase, amylase Status: Acute (3) Diabetes Status: Acute (4) Acidosis Status: Acute
--- NOTE | 2016-06-02 21:23 | CON ---
DATE: 06/02/2016 ROOM: 652. HISTORY OF PRESENT ILLNESS: This is a 41-year-old male presenting here with diffuse abdominal pain l ocalized to the left upper quadrant and has been evaluated to have acute pancreatitis and is now bein g referred for endocrine evaluation of marked dyslipidemia and concomitant uncontrolled type 2 insuli n-requiring diabetes. He is currently still n.p.o. at this time as noted. PAST MEDICAL HISTORY: History of type 2 insulin-requiring diabetes using NovoLog 70/30 given at the variable dose twice daily as noted with metformin given as 1000 mg b.i.d., history of dyslipidemia wi th previous admission also for acute pancreatitis about 5 years ago. He was supposed to be using Tri cor and some kind of statin therapy, but has discontinued the aforementioned because of financial con straints. FAMILY HISTORY: Positive for hypertension and diabetes. SOCIAL HISTORY: The patient has a supportive family and admits to polysubstance abuse with nicotine dependence and chronic alcoholism with recent alcoholic intoxication over the last few days or so pili or to admission. PHYSICAL EXAMINATION: GENERAL: He is an average built male in no apparent distress. VITAL SIGNS: Blood pressure of 140/80, pulse of 70 beats per minute and regular, temperature 99, res pirations 20. Height is 5 feet 6 inches, weight is 188 pounds. HEENT: Head normocephalic. Eyes anicteric with pink conjunctivae. Fundoscopy not possible at this time. Ears, nose and throat otherwise normal. NECK: Supple. Thyroid gland is normal size. No carotid bruits or any cervical adenopathy. CARDIOPULMONARY: Has an adynamic precordium. S1, S2 is rapid and regular. LUNGS: Clear to auscultation. ABDOMEN: Flat, soft with positive bowel sounds. EXTREMITIES: No peripheral edema. Pulses are +2 bilaterally. LABORATORY DATA: The chemistry showed a BUN of 6, sodium 136, potassium 4.2, chloride 95, CO2 of 15, glucose is 214 and creatinine is 0.5. His glucose levels have ranged from 228-296 mg/dL. His lipid panel showed a triglyceride level of 9471 with a cholesterol level of 1037, HDL is 25 and LDL is 311 . ASSESSMENT: This is a 41-year-old male with uncontrolled and decompensated type 2 insulin-requiring diabetes, presenting here with hyperosmolar hyperglycemic state and ketosis and concomitant clinical and biochemical evidence of dehydration and has been evaluated to have acute pancreatitis with underl hannah marked dyslipidemia. As the patient is n.p.o. at this time, we can restart him on his premixed insulin regimen and instead give him a low dose and more affordable insulin such as Novolin NPH given as 12 units subQ every 12 hours at 10:00 a.m. and 10:00 p.m. daily to start today. As his oral inta ke improves and as his diet is advanced to solid food, then will switch him over to a basal and bolus insulin regimen to optimize metabolic control. Will continue the vigorous IV hydration as ordered a nd will hold off on an insulin drip infusion, which is really the ideal therapy for marked dyslipidem ia as he remains clinically and biochemically stable at this time. Will obtain serial chemistries an d supplement accordingly as needed. Will continue the vigorous IV hydration as given and will titrat e incrementally as indicated to optimize metabolic control. Will also obtain a lipoprotein phenotype study to ascertain whether we are dealing with a familial combined dyslipidemia or whether we are de aling only with an acquired dyslipidemia related to chronic alcoholism and uncontrolled type 2 insuli n-requiring diabetes, which as we know would inhibit lipoprotein lipase activity and cause further el evated lipids as noted. As mentioned earlier, with a marked insulin deficiency, would expect inhibit ion of the lipoprotein lipase level contributing to the marked hypertriglyceridemia and as an m arked hypercholesterolemia. As his lipase levels are normal at this time, would actually recommend a dvancing his diet to a soft diet for now and titrate as tolerated accordingly. Will continue the vig orous IV hydration as ordered and obtain serial chemistries and supplement accordingly as needed. Wi ll follow. Es Whatley MD cc: [id number] TT: 06/02/2016 21:23:15 Confirmation # [id number] Dictation # [id number] [email or web address]
[2016-06-02] MEDS: (Novolin N) Insulin Human Isophane (NPH) 100 u/ml 10 ml vial SC SCH (22:35)
[2016-06-03] MEDS: Sodium Chloride 0.9% 1,000 ML IV SCH ×6 (02:00→20:41)
[2016-06-03 06:06] LABS: BASO # 0.1 K/uL (0.0-0.2); BASO % 0.9 % (0.0-2.0); EOS # 0.1 K/uL (0.0-0.7); HEMATOCRIT 33.4 % (35.0-51.0); LYMPH # 1.8 K/uL (1.0-4.3); LYMPH % 14.1 % (20.0-40.0); MEAN CELL VOLUME 94.5 fL (80.0-94.0); MEAN CORPUSCULAR HEMOGLOBIN 33.4 pg (27.0-31.0); MEAN CORPUSCULAR HGB CONC 35.3 g/dL (33.0-37.0); MEAN PLATELET VOLUME 8.4 fL (7.2-11.7); MONO % 7.8 % (0.0-10.0); RED CELL DISTRIBUTION WIDTH 12.6 % (11.5-14.5); WHITE BLOOD COUNT 13.1 K/uL (4.8-10.8)
[2016-06-03 06:23] LABS: CHLORIDE 100 mmol/L (98-107); SODIUM 133 mmol/L (132-148)
[2016-06-03 06:24] LABS: POTASSIUM 3.7 mmol/L (3.6-5.2)
[2016-06-03 06:25] LABS: BILIRUBIN,TOTAL 1.4 mg/dL (0.2-1.3); GFR AFRICAN-AMERICAN > 60
[2016-06-03 06:26] LABS: ALKALINE PHOSPHATASE 82 U/L (38-126); ALT/SGPT 13 U/L (21-72); AST/SGOT 15 U/L (17-59); BLOOD UREA NITROGEN 6 mg/dL (9-20); CALCIUM 8.2 mg/dl (8.6-10.4); CARBON DIOXIDE 20 mmol/L (22-30); GLUCOSE,RANDOM 152 mg/dL (75-110); TOTAL PROTEIN 6.4 g/dL (6.3-8.3)
[2016-06-03 06:52] LABS: ALB/GLOB RATIO 1.1 (1.0-2.1); CHOLESTEROL 553 mg/dL (0-199)
[2016-06-03 06:57] LABS: THYROID STIMULATING HORMONE 0.64 mIU/L (0.46-4.68)
[2016-06-03] MEDS: (Novolin R) Insulin Human Regular 100 units/ml vial SC SCH ×4 (08:22→22:03)
[2016-06-03] MEDS: (Novolin N) Insulin Human Isophane (NPH) 100 u/ml 10 ml vial SC SCH ×2 (09:47→22:02)
[2016-06-03] MEDS: Enoxaparin 40 mg Syringe SC SCH (09:58)
[2016-06-03] MEDS ORDERED: Influenza Virus Vaccine 45 mcg/0.5 ml Syr IM ONE (10:00)
[2016-06-03] MEDS ORDERED: Pneumococcal 23-Valent Vaccine IM ONE (10:00)
--- NOTE | 2016-06-03 11:31 | CP.PCM.PN ---
Subjective - Date & Time of Evaluation Date of Evaluation: 06/03/16 Time of Evaluation: 11:29 - Subjective Subjective: Feels better. No abdominal pain or N/V Discussed with Fiction And Nonfiction Author Objective - Vital Signs/Intake and Output Vital Signs (last 24 hours): Temp Pulse Resp BP Pulse Ox 99.6 F 95 H 20 113/74 96 06/03/16 07:12 06/03/16 07:12 06/03/16 07:12 06/03/16 07:12 06/03/16 07:12 Intake and Output: 06/03/16 06/03/16 06:59 18:59 Intake Total 1999 Balance 1999 - Medications Medications: Current Medications Acetaminophen (Tylenol 325mg Tab) 650 mg PO Q6 PRN PRN Reason: Fever >100.4 F Enoxaparin Sodium (Lovenox) 40 mg SC DAILY [facility] Last Admin: 06/03/16 09:58 Dose: 40 mg Fenofibrate (Tricor) 145 mg PO QPM [facility] Last Admin: 06/02/16 19:09 Dose: Not Given Sodium Chloride (Sodium Chloride 0.9%) 1,000 mls @ 250 mls/hr IV .Q4H [facility] Last Admin: 06/03/16 08:45 Dose: 250 mls/hr Insulin Human NPH (Novolin N) 12 unit SC Q12H [facility] Last Admin: 06/03/16 09:47 Dose: Not Given Insulin Human Regular (Novolin R) 0 unit SC ACHS [facility] PRN Reason: Protocol Last Admin: 06/03/16 08:22 Dose: Not Given Morphine Sulfate (Morphine) 2 mg IVP Q4H PRN PRN Reason: Pain, severe (8-10) Last Admin: 06/03/16 05:57 Dose: 2 mg Ondansetron HCl (Zofran Inj) 4 mg IVP Q6 PRN PRN Reason: Nausea/Vomiting Last Admin: 06/01/16 22:32 Dose: 4 mg Pantoprazole Sodium (Protonix Inj) 40 mg IVP DAILY [facility] Last Admin: 06/03/16 09:58 Dose: 40 mg Rosuvastatin Calcium (Crestor) 20 mg PO HS [facility] Last Admin: 06/02/16 22:35 Dose: Not Given - Labs Labs: 06/03/16 05:58 06/03/16 05:58 - Constitutional Appears: Well, No Acute Distress - Head Exam Head Exam: NORMOCEPHALIC - Eye Exam Eye Exam: absent: Scleral icterus - Respiratory Exam Respiratory Exam: NORMAL BREATHING PATTERN - Cardiovascular Exam Cardiovascular Exam: REGULAR RHYTHM - GI/Abdominal Exam GI & Abdominal Exam: Soft, Normal Bowel Sounds. absent: Distended, Guarding, Tenderness, Mass Assessment and Plan (1) Diabetes Assessment & Plan: Stable Follow recommendations of Endocrinology Status: Acute (2) Pancreatitis Assessment & Plan: Alcohol induced. Also Hyperlipidemic. Clinically responding to conservative therapy. May advance to solid diet today, low fat. Abstension from alcohol discussed with patient. Status: Acute
--- NOTE | 2016-06-03 12:57 | CP.PCM.PN ---
<Meek Torres - Last Filed: 06/03/16 12:54> Subjective - Date & Time of Evaluation Date of Evaluation: 06/03/16 Time of Evaluation: 12:55 - Subjective Subjective: PGY-1 note for medicine service Pt seen and examined at bedside. Pt states that the pain is better today. He denies any fevers, chills, chest pain, sob, nausea or vomiting. Objective - Vital Signs/Intake and Output Vital Signs (last 24 hours): Temp Pulse Resp BP Pulse Ox 99.6 F 95 H 20 113/74 96 06/03/16 07:12 06/03/16 07:12 06/03/16 07:12 06/03/16 07:12 06/03/16 07:12 Intake and Output: 06/03/16 06/03/16 06:59 18:59 Intake Total 1999 Balance 1999 - Medications Medications: Current Medications Acetaminophen (Tylenol 325mg Tab) 650 mg PO Q6 PRN PRN Reason: Fever >100.4 F Enoxaparin Sodium (Lovenox) 40 mg SC DAILY [facility] Last Admin: 06/03/16 09:58 Dose: 40 mg Fenofibrate (Tricor) 145 mg PO QPM [facility] Last Admin: 06/02/16 19:09 Dose: Not Given Sodium Chloride (Sodium Chloride 0.9%) 1,000 mls @ 250 mls/hr IV .Q4H [facility] Last Admin: 06/03/16 08:45 Dose: 250 mls/hr Insulin Human NPH (Novolin N) 12 unit SC Q12H [facility] Last Admin: 06/03/16 09:47 Dose: Not Given Insulin Human Regular (Novolin R) 0 unit SC ACHS [facility] PRN Reason: Protocol Last Admin: 06/03/16 12:40 Dose: Not Given Morphine Sulfate (Morphine) 2 mg IVP Q4H PRN PRN Reason: Pain, severe (8-10) Last Admin: 06/03/16 05:57 Dose: 2 mg Ondansetron HCl (Zofran Inj) 4 mg IVP Q6 PRN PRN Reason: Nausea/Vomiting Last Admin: 06/01/16 22:32 Dose: 4 mg Pantoprazole Sodium (Protonix Inj) 40 mg IVP DAILY [facility] Last Admin: 06/03/16 09:58 Dose: 40 mg Rosuvastatin Calcium (Crestor) 20 mg PO HS [facility] Last Admin: 06/02/16 22:35 Dose: Not Given - Labs Labs: 06/03/16 05:58 06/03/16 05:58 - Constitutional Appears: Non-toxic, No Acute Distress - Head Exam Head Exam: ATRAUMATIC, NORMOCEPHALIC - Respiratory Exam Respiratory Exam: Clear to Ausculation Bilateral, NORMAL BREATHING PATTERN - Cardiovascular Exam Cardiovascular Exam: +S1, +S2 - GI/Abdominal Exam GI & Abdominal Exam: Soft, Tenderness (mild over epigastric area), Normal Bowel Sounds - Back Exam Back Exam: NORMAL INSPECTION - Neurological Exam Neurological Exam: Alert, Awake - Skin Skin Exam: Dry, Warm Assessment and Plan - Assessment and Plan (Free Text) Assessment: Acute pancreatitis - Abdominal better today - Repeat lipase 1723, up from 93 at admission - NS at 250 cc/hr - Continue to monitor and advance diet as tolerated - clear liquid today Imaging - CT abdomen and pelvis - Findings consistent with acute pancreatitis. No peripancreatic fluid collection. No evidence of pancreatic necrosis. Mild hepatomegaly with fatty infiltration of the liver. No other significant abnormality. - Abd US 05/31 - fatty liver, pancreas not well visualized - Zofran PRN - Morphine 2mg PRN - Trigs > 9000, Total cholesterol > 1000 - Trigs down to ~1800 and cholesterol ~550 Consult endo (Cam) - f/u recs - Lipoprotein fractionation - Standing insulin NPH 12 units Consult GI (Preeti) - f/u results - c/w current treatment Abdominal pain - Secondary to acute pancreatitis - See above Elevated triglycerides/cholesterol - Trigs > 9000, Total cholesterol > 1000 - Trigs down to ~1800 and cholesterol ~550 - Tricor 145mg Q HS - Crestor 20mg Q HS Hx of DM - A1C in AM - 11.0 - HISS - Accuchecks - 200's - Endo (Cam) - help appreciated - Standing insulin NPH 12 units with sliding scale PPX - Lovenox - Protonix <Shaheed Luo - Last Filed: 06/03/16 14:39> Objective - Vital Signs/Intake and Output Vital Signs (last 24 hours): Temp Pulse Resp BP Pulse Ox 99.6 F 95 H 20 113/74 96 06/03/16 07:12 06/03/16 07:12 06/03/16 07:12 06/03/16 07:12 06/03/16 07:12 Intake and Output: 06/03/16 06/03/16 06:59 18:59 Intake Total 1999 Balance 1999 - Medications Medications: Current Medications Acetaminophen (Tylenol 325mg Tab) 650 mg PO Q6 PRN PRN Reason: Fever >100.4 F Enoxaparin Sodium (Lovenox) 40 mg SC DAILY [facility] Last Admin: 06/03/16 09:58 Dose: 40 mg Fenofibrate (Tricor) 145 mg PO QPM [facility] Last Admin: 06/02/16 19:09 Dose: Not Given Sodium Chloride (Sodium Chloride 0.9%) 1,000 mls @ 250 mls/hr IV .Q4H [facility] Last Admin: 06/03/16 12:45 Dose: 250 mls/hr Insulin Human NPH (Novolin N) 12 unit SC Q12H [facility] Last Admin: 06/03/16 09:47 Dose: Not Given Insulin Human Regular (Novolin R) 0 unit SC ACHS [facility] PRN Reason: Protocol Last Admin: 06/03/16 12:40 Dose: Not Given Morphine Sulfate (Morphine) 2 mg IVP Q4H PRN PRN Reason: Pain, severe (8-10) Last Admin: 06/03/16 05:57 Dose: 2 mg Ondansetron HCl (Zofran Inj) 4 mg IVP Q6 PRN PRN Reason: Nausea/Vomiting Last Admin: 06/01/16 22:32 Dose: 4 mg Pantoprazole Sodium (Protonix Inj) 40 mg IVP DAILY [facility] Last Admin: 06/03/16 09:58 Dose: 40 mg Rosuvastatin Calcium (Crestor) 20 mg PO HS [facility] Last Admin: 06/02/16 22:35 Dose: Not Given - Labs Labs: 06/03/16 05:58 06/03/16 05:58 Attending/Attestation - Attestation I have personally seen and examined this patient.: Yes I have fully participated in the care of the patient.: Yes I have reviewed all pertinent clinical information, including history, physical exam and plan: Yes Notes (Text): 06/03/16 14:38 Patient was seen and examined at bedside with the resident during the rounds today Patient is awake alert and states abdominal pain is improving Patient will be started on clear liquid diet We will continue treatment for diabetes mellitus as per recommendations of the endocrinology Patient to also has severe hypertriglyceridemia and hypercholesterolemia We will start the patient on TriCor and Crestor We will continue current management and monitor patient's electrolytes Discussed the plan of care with the resident during the rounds and I agree with the above history and physical and assessment/plan by the resident
[2016-06-04 00:50] VITALS: RESP 20
[2016-06-04] MEDS: Sodium Chloride 0.9% 1,000 ML IV SCH ×4 (01:15→12:27)
[2016-06-04 07:08] LABS: BASO % 0.4 % (0.0-2.0); EOS # 0.1 K/uL (0.0-0.7); EOS % 1.4 % (0.0-4.0); HEMATOCRIT 29.8 % (35.0-51.0); LYMPH # 1.7 K/uL (1.0-4.3); LYMPH % 17.3 % (20.0-40.0); MEAN CELL VOLUME 94.5 fL (80.0-94.0); MEAN CORPUSCULAR HEMOGLOBIN 32.9 pg (27.0-31.0); MEAN CORPUSCULAR HGB CONC 34.8 g/dL (33.0-37.0); MEAN PLATELET VOLUME 8.2 fL (7.2-11.7); MONO # 0.8 K/uL (0.0-0.8); MONO % 7.9 % (0.0-10.0); RED CELL DISTRIBUTION WIDTH 12.6 % (11.5-14.5); WHITE BLOOD COUNT 9.7 K/uL (4.8-10.8)
[2016-06-04 07:43] LABS: CHLORIDE 101 mmol/L (98-107)
[2016-06-04 07:44] LABS: POTASSIUM 3.1 mmol/L (3.6-5.2); SODIUM 138 mmol/L (132-148)
[2016-06-04 07:46] LABS: AST/SGOT 16 U/L (17-59); BILIRUBIN,TOTAL 1.4 mg/dL (0.2-1.3); BLOOD UREA NITROGEN 5 mg/dL (9-20); CARBON DIOXIDE 24 mmol/L (22-30); GFR AFRICAN-AMERICAN > 60; TOTAL PROTEIN 6.3 g/dL (6.3-8.3)
[2016-06-04 07:47] LABS: ALKALINE PHOSPHATASE 81 U/L (38-126); ALT/SGPT 10 U/L (21-72); CALCIUM 8.3 mg/dl (8.6-10.4); GLUCOSE,RANDOM 147 mg/dL (75-110)
[2016-06-04 08:14] VITALS: BP 104/61; PULSE 80; TEMP 98.6; O2SAT 98
[2016-06-04] MEDS: (Novolin R) Insulin Human Regular 100 units/ml vial SC SCH ×2 (09:38→12:23)
[2016-06-04] MEDS: Enoxaparin 40 mg Syringe SC SCH (10:01)
[2016-06-04] MEDS: (Novolin N) Insulin Human Isophane (NPH) 100 u/ml 10 ml vial SC SCH (10:01)
[2016-06-04] MEDS: Potassium Chloride 20 mEq/15 ml LIQ UD PO SCH ×2 (10:02→12:24)
--- NOTE | 2016-06-04 10:22 | PN ---
DATE: 06/04/2016 ROOM: 652 SUBJECTIVE: This is a 41-year-old male with acute pancreatitis related to recent alcoholic intoxicat ion on the background of chronic alcoholism and is now being followed closely for metabolic managemen t. He also had transient hyperglycemic accelerations and is currently still on basal insulin as give n because of the very nil oral intake as noted. His glycemic levels are fluctuating, but improved an d the latest chemistry showed a BUN of 6, sodium 133, potassium 3.7, chloride 100, CO2 28, glucose 15 2, creatinine 0.4. His lipids have improved and the latest cholesterol level is 553 with a triglycer bacilio level of 1833. With the initial marked dyslipidemia which could be related both to the recent al coholic intoxication and possible familial combined dyslipidemia with ____ improvement of the aforeme ntioned with ____ and expect improvement of the lipid levels also a s the impaired lipoprotein lipase activity improves with intensive insulin therapy. We will obtain serial l9ipid levels and serial ch emistries accordingly. We actually sent out a lipoprotein fractionation for phenotype testing to co nfirm and/or negate the presence of underlying familial combined ____ . We will follow and advise ac cordingly. ____ continue ____ given once daily as ordered and once his oral intake is advanced to so lid food, then we will switch him over to a combination of ____ Humulin 70/30 ____ with basal NPH giv en at bedtime to optimize ____ We will follow. Es Whatley MD cc: [id number] TT: 06/04/2016 10:21:59 Confirmation # [id number] Dictation # [id number]
--- NOTE | 2016-06-04 12:38 | CP.PCM.PN ---
Subjective - Date & Time of Evaluation Date of Evaluation: 06/04/16 Time of Evaluation: 12:35 - Subjective Subjective: COVERING DR BECKHAM/ABEBA No pain or vomiting Eating regular diet Objective - Vital Signs/Intake and Output Vital Signs (last 24 hours): Temp Pulse Resp BP Pulse Ox 98.6 F 80 20 104/61 98 06/04/16 07:10 06/04/16 07:10 06/04/16 07:10 06/04/16 07:10 06/04/16 07:10 Intake and Output: 06/04/16 06/04/16 06:59 18:59 Intake Total 4000 Balance 4000 - Medications Medications: Current Medications Acetaminophen (Tylenol 325mg Tab) 650 mg PO Q6 PRN PRN Reason: Fever >100.4 F Enoxaparin Sodium (Lovenox) 40 mg SC DAILY [facility] Last Admin: 06/04/16 10:01 Dose: 40 mg Fenofibrate (Tricor) 145 mg PO QPM [facility] Last Admin: 06/03/16 18:59 Dose: 145 mg Sodium Chloride (Sodium Chloride 0.9%) 1,000 mls @ 250 mls/hr IV .Q4H [facility] Last Admin: 06/04/16 12:27 Dose: 250 mls/hr Insulin Human NPH (Novolin N) 12 unit SC Q12H [facility] Last Admin: 06/04/16 10:01 Dose: 12 unit Insulin Human Regular (Novolin R) 0 unit SC ACHS [facility] PRN Reason: Protocol Last Admin: 06/04/16 12:23 Dose: 2 unit Morphine Sulfate (Morphine) 2 mg IVP Q4H PRN PRN Reason: Pain, severe (8-10) Last Admin: 06/03/16 16:39 Dose: 2 mg Ondansetron HCl (Zofran Inj) 4 mg IVP Q6 PRN PRN Reason: Nausea/Vomiting Last Admin: 06/01/16 22:32 Dose: 4 mg Pantoprazole Sodium (Protonix Inj) 40 mg IVP DAILY [facility] Last Admin: 06/04/16 10:00 Dose: 40 mg Potassium Chloride (Potassium Chloride Oral Soln) 40 meq PO Q4H [facility] Stop: 06/04/16 12:46 Last Admin: 06/04/16 12:24 Dose: 40 meq Rosuvastatin Calcium (Crestor) 20 mg PO HS [facility] Last Admin: 06/03/16 22:02 Dose: 20 mg - Labs Labs: 06/04/16 06:30 06/04/16 06:30 - Constitutional Appears: No Acute Distress - Head Exam Head Exam: ATRAUMATIC, NORMOCEPHALIC - Eye Exam Eye Exam: EOMI, PERRL - Respiratory Exam Respiratory Exam: NORMAL BREATHING PATTERN - Cardiovascular Exam Cardiovascular Exam: REGULAR RHYTHM - GI/Abdominal Exam GI & Abdominal Exam: Soft, Normal Bowel Sounds. absent: Tenderness - Extremities Exam Extremities Exam: Normal Inspection Assessment and Plan (1) Pancreatitis Assessment & Plan: Clinically resolved. Need to regulate lipids as outpatient Abstain from alcohol both of which likely contributed to his pancreatitis. Recurrence likelihood high without proper follow up and compliance Status: Acute (2) Hyperlipidemia Assessment & Plan: as above Status: Acute
--- NOTE | 2016-06-04 14:04 | CP.PCM.DIS ---
<Landry Soni H - Last Filed: 06/04/16 19:18> Provider - Provider Date of Admission: 06/02/16 09:34 Attending physician: Shaheed Luo MD Consults: Dr. Stephenson GI Dr. Whatley Endocrinology Time Spent in preparation of Discharge (in minutes): 30 Hospital Course - Lab Results Lab Results: Most Recent Lab Values WBC 9.7 K/uL (4.8-10.8) 06/04/16 06:30 RBC 3.15 Mil/uL (4.40-5.90) L 06/04/16 06:30 Hgb 10.4 g/dL (12.0-18.0) L 06/04/16 06:30 Hct 29.8 % (35.0-51.0) L 06/04/16 06:30 MCV 94.5 fL (80.0-94.0) H 06/04/16 06:30 MCH 32.9 pg (27.0-31.0) H 06/04/16 06:30 MCHC 34.8 g/dL (33.0-37.0) 06/04/16 06:30 RDW 12.6 % (11.5-14.5) 06/04/16 06:30 Plt Count 309 K/uL (130-400) 06/04/16 06:30 MPV 8.2 fL (7.2-11.7) 06/04/16 06:30 Neut % (Auto) 73.0 % (50.0-75.0) 06/04/16 06:30 Lymph % (Auto) 17.3 % (20.0-40.0) L 06/04/16 06:30 [place] % (Auto) 7.9 % (0.0-10.0) 06/04/16 06:30 Eos % (Auto) 1.4 % (0.0-4.0) 06/04/16 06:30 Baso % (Auto) 0.4 % (0.0-2.0) 06/04/16 06:30 Neut # 7.1 K/uL (1.8-7.0) H 06/04/16 06:30 Lymph # 1.7 K/uL (1.0-4.3) 06/04/16 06:30 [place] # 0.8 K/uL (0.0-0.8) 06/04/16 06:30 Eos # 0.1 K/uL (0.0-0.7) 06/04/16 06:30 Baso # 0.0 K/uL (0.0-0.2) 06/04/16 06:30 Neutrophils % (Manual) 90 % (50-75) H 06/02/16 06:06 Lymphocytes % (Manual) 6 % (20-40) L 06/02/16 06:06 Monocytes % (Manual) 4 % (0-10) 06/02/16 06:06 Platelet Estimate Normal (NORMAL) 06/02/16 06:06 RBC Morphology Normal 06/02/16 06:06 Puncture Site Rr 05/31/16 11:35 pCO2 37 mm/Hg (35-45) 05/31/16 11:35 pO2 81 mm/Hg (80-100) 05/31/16 11:35 HCO3 24.3 mmol/L (21-28) 05/31/16 11:35 ABG pH 7.41 (7.35-7.45) 05/31/16 11:35 ABG Total CO2 24.6 mmol/L (22-28) 05/31/16 11:35 ABG Base Excess -0.8 mmol/L (-2.0-3.0) 05/31/16 11:35 Gigi Test Pos 05/31/16 11:35 ABG Potassium 3.4 mmol/L (3.6-5.2) L 05/31/16 11:35 VBG pH 7.38 (7.32-7.43) 05/31/16 07:55 VBG pCO2 46 mmHg (40-60) 05/31/16 07:55 VBG HCO3 25.3 mmol/L 05/31/16 07:55 VBG Total CO2 28.6 mmol/L (22-28) H 05/31/16 07:55 VBG O2 Sat (Calc) 85.6 % (40-65) H 05/31/16 07:55 VBG Base Excess 1.5 mmol/L (0.0-2.0) 05/31/16 07:55 VBG Potassium 3.6 mmol/L (3.6-5.2) 05/31/16 07:55 A-a O2 Difference 22.0 mm/Hg 05/31/16 11:35 Respiratory Index 0.3 05/31/16 11:35 Sodium 137.0 mmol/l (132-148) 05/31/16 11:35 Chloride 109.0 mmol/L (98-107) H 05/31/16 11:35 Glucose 254 mg/dl (75-110) H 05/31/16 11:35 Lactate 0.7 mmol/L (0.7-2.1) 05/31/16 11:35 FiO2 21.0 % 05/31/16 11:35 Sodium 138 mmol/L (132-148) 06/04/16 06:30 Potassium 3.1 mmol/L (3.6-5.2) L 06/04/16 06:30 Chloride 101 mmol/L (98-107) 06/04/16 06:30 Carbon Dioxide 24 mmol/L (22-30) 06/04/16 06:30 Anion Gap 16 (10-20) 06/04/16 06:30 BUN 5 mg/dL (9-20) L 06/04/16 06:30 Creatinine 0.4 MG/DL (0.8-1.5) L 06/04/16 06:30 Est GFR ( Amer) > 60 06/04/16 06:30 Est GFR (Non-Af Amer) > 60 06/04/16 06:30 POC Glucose (mg/dL) 202 mg/dL (65-110) H 06/04/16 11:30 Random Glucose 147 mg/dL (75-110) H 06/04/16 06:30 Hemoglobin A1c 11.0 % (4.2-6.5) H 06/01/16 06:12 Calcium 8.3 mg/dl (8.6-10.4) L 06/04/16 06:30 Total Bilirubin 1.4 mg/dL (0.2-1.3) H 06/04/16 06:30 GGT 34 U/L (8-78) 06/03/16 05:58 AST 16 U/L (17-59) L 06/04/16 06:30 ALT 10 U/L (21-72) L D 06/04/16 06:30 Alkaline Phosphatase 81 U/L (38-126) 06/04/16 06:30 Total Protein 6.3 g/dL (6.3-8.3) 06/04/16 06:30 Albumin 3.2 g/dL (3.5-5.0) L 06/04/16 06:30 Globulin 3.1 gm/dL (2.2-3.9) 06/04/16 06:30 Albumin/Globulin Ratio 1.0 (1.0-2.1) 06/04/16 06:30 Triglycerides 857 mg/dL (0-149) H D 06/04/16 06:30 Cholesterol 553 mg/dL (0-199) H 06/03/16 05:58 LDL Cholesterol Direct 69 mg/dL (0-129) 06/03/16 05:58 HDL Cholesterol 28 mg/dL (30-70) L 06/03/16 05:58 Lipase 1723 U/L (23-300) H 06/03/16 05:58 TSH 3rd Generation 0.64 mIU/L (0.46-4.68) 06/03/16 05:58 Arterial Blood Potassium 3.4 mmol/L (3.6-5.2) L 05/31/16 11:35 Venous Blood Potassium 3.6 mmol/L (3.6-5.2) 05/31/16 07:55 Urine Color Yellow (YELLOW) 05/31/16 04:11 Urine Clarity Clear (Clear) 05/31/16 04:11 Urine pH 6.0 (5.0-8.0) 05/31/16 04:11 Ur Specific Law[place] 1.036 (1.003-1.030) H 05/31/16 04:11 Urine Protein 1+ mg/dL (NEGATIVE) H 05/31/16 04:11 Urine Glucose (UA) 3+ mg/dL (Normal) H 05/31/16 04:11 Urine Ketones 2+ mg/dL (NEGATIVE) H 05/31/16 04:11 Urine Blood Negative (NEGATIVE) 05/31/16 04:11 Urine Nitrate Negative (NEGATIVE) 05/31/16 04:11 Urine Bilirubin Negative (NEGATIVE) 05/31/16 04:11 Urine Urobilinogen Normal mg/dL (0.2-1.0) 05/31/16 04:11 Ur Leukocyte Esterase Neg Luis/uL (Negative) 05/31/16 04:11 Urine WBC (Auto) 1 /hpf (0-5) 05/31/16 04:11 Urine RBC (Auto) < 1 /hpf (0-3) 05/31/16 04:11 Ur Squamous Epith Cells 1 /hpf (0-5) 05/31/16 04:11 Serum Ketones Small (NEGATIVE) 05/31/16 07:51 - Hospital Course Hospital Course: Initial history Pt is a 41 year old male with PMHx of Type 2 DM complaining of LUQ that began Monday evening. Patient states pain is intermittent and currently 6/10. Pain is worsened with movement, eating, and drinking and relieved w/ laying supine. Patient has not eaten since Monday evening due to pain. Patient states he has had recurrent episodes of nausea following ingestion of solids and liquids and one episode of vomiting of yellow colored emesis. Patient relates this is the same presentation of symptoms when he was previously diagnosed with acute pancreatitis in 2007. Pt has a hx of Etoh abuse but reports minimal intake currently. He states that he had 6 beers on the preceding Monday and 2 beers the Monday symptoms began. Denies any fevers, chills, chest pain, visual changes , palpitations, sob or diarrhea. Hospital course: Patient was admitted for acute pancreatitis and also found to have very high triglycerides. His Lipase was elevated at over [address] scan showed acute pancreatitis. He was kept NPO and given IV fluids. He was also given insulin to treat his DM. Consults for GI and Endocrinology were also made and followe up on. Adominal ultrasound was also preformed as well which showed possible infiltration of the liver see emr for full reads of both CT scan and ultrasoun. Labs were drawn every day and patient was given IV fluids and morphine for pain control. He was discharged home with PO medication see plan for more information and will follow up in the [facility] clinic. Patient admitted on 05/31 and discharged 06/04. Please see emr for all labs Discharge plan Patient to be discharged per Dr. Luo. Patient will continue taking Tricor 145mg once a day, Novolin 70/30 NPH 15 units twice a day, and Zocor 40mg everyday. He will eat a low fat diet. He will follow up at [facility] within 2 weeks of discharge for post hospital follow up care and medication refill. Come back to the ED if symptoms return or worsen. Discharge diagnosis: Acute pancreatitis Hypertrigceremia uncontrolled DM Discharge Exam - Head Exam Head Exam: ATRAUMATIC, NORMOCEPHALIC - Eye Exam Eye Exam: Normal appearance Pupil Exam: NORMAL ACCOMODATION - Respiratory Exam Respiratory Exam: Clear to PA & Lateral. absent: Rales, Rhonchi, Wheezes, NORMAL BREATHING PATTERN - Cardiovascular Exam Cardiovascular Exam: REGULAR RHYTHM, RRR, +S1, +S2. absent: Gallop, Rubs - GI/Abdominal Exam GI & Abdominal Exam: Normal Bowel Sounds, Soft. absent: Distended, Firm, Tenderness - Extremities Exam Extremities exam: normal inspection - Neurological Exam Neurological exam: Alert - Psychiatric Exam Psychiatric exam: Normal Affect, Normal Mood - Skin Skin Exam: Dry, Normal Color Discharge Plan - Discharge Medications Prescriptions: Insulin Human (NPH)/Regular [Novolin 70/30 (70/30 units/ml) 10 ml] 15 units SC BID #2 vial Simvastatin 40 mg PO DAILY #30 tablet Fenofibrate [Tricor] 145 mg PO QPM #30 tab - Follow Up Plan Condition: STABLE Disposition: HOME/ ROUTINE Instructions: Simvastatin (By mouth), Fenofibrate (By mouth), Insulin NPH/ Regular (By injection), Insulin Human Isophane (NPH) (By injection), Acute Abdominal Pain (DC), Acute Abdominal Pain (GEN), Pancreatitis (DC) Additional Instructions: Patient to be discharged per Dr. Luo. Patient will continue taking Tricor 145mg once a day, Novolin 70/30 NPH 15 units twice a day, and Zocor 40mg everyday. He will eat a low fat diet. He will follow up at [facility] within 2 weeks of discharge for post hospital follow up care and medication refill. Come back to the ED if symptoms return or worsen. Referrals: [facility] at [facility] [Outside] <Shaheed Luo - Last Filed: 06/05/16 13:10> Provider - Provider Date of Admission: 06/02/16 09:34 Attending physician: Shaheed Luo MD Hospital Course - Lab Results Lab Results: Most Recent Lab Values WBC 9.7 K/uL (4.8-10.8) 06/04/16 06:30 RBC 3.15 Mil/uL (4.40-5.90) L 06/04/16 06:30 Hgb 10.4 g/dL (12.0-18.0) L 06/04/16 06:30 Hct 29.8 % (35.0-51.0) L 06/04/16 06:30 MCV 94.5 fL (80.0-94.0) H 06/04/16 06:30 MCH 32.9 pg (27.0-31.0) H 06/04/16 06:30 MCHC 34.8 g/dL (33.0-37.0) 06/04/16 06:30 RDW 12.6 % (11.5-14.5) 06/04/16 06:30 Plt Count 309 K/uL (130-400) 06/04/16 06:30 MPV 8.2 fL (7.2-11.7) 06/04/16 06:30 Neut % (Auto) 73.0 % (50.0-75.0) 06/04/16 06:30 Lymph % (Auto) 17.3 % (20.0-40.0) L 06/04/16 06:30 [place] % (Auto) 7.9 % (0.0-10.0) 06/04/16 06:30 Eos % (Auto) 1.4 % (0.0-4.0) 06/04/16 06:30 Baso % (Auto) 0.4 % (0.0-2.0) 06/04/16 06:30 Neut # 7.1 K/uL (1.8-7.0) H 06/04/16 06:30 Lymph # 1.7 K/uL (1.0-4.3) 06/04/16 06:30 [place] # 0.8 K/uL (0.0-0.8) 06/04/16 06:30 Eos # 0.1 K/uL (0.0-0.7) 06/04/16 06:30 Baso # 0.0 K/uL (0.0-0.2) 06/04/16 06:30 Neutrophils % (Manual) 90 % (50-75) H 06/02/16 06:06 Lymphocytes % (Manual) 6 % (20-40) L 06/02/16 06:06 Monocytes % (Manual) 4 % (0-10) 06/02/16 06:06 Platelet Estimate Normal (NORMAL) 06/02/16 06:06 RBC Morphology Normal 06/02/16 06:06 Puncture Site Rr 05/31/16 11:35 pCO2 37 mm/Hg (35-45) 05/31/16 11:35 pO2 81 mm/Hg (80-100) 05/31/16 11:35 HCO3 24.3 mmol/L (21-28) 05/31/16 11:35 ABG pH 7.41 (7.35-7.45) 05/31/16 11:35 ABG Total CO2 24.6 mmol/L (22-28) 05/31/16 11:35 ABG Base Excess -0.8 mmol/L (-2.0-3.0) 05/31/16 11:35 Gigi Test Pos 05/31/16 11:35 ABG Potassium 3.4 mmol/L (3.6-5.2) L 05/31/16 11:35 VBG pH 7.38 (7.32-7.43) 05/31/16 07:55 VBG pCO2 46 mmHg (40-60) 05/31/16 07:55 VBG HCO3 25.3 mmol/L 05/31/16 07:55 VBG Total CO2 28.6 mmol/L (22-28) H 05/31/16 07:55 VBG O2 Sat (Calc) 85.6 % (40-65) H 05/31/16 07:55 VBG Base Excess 1.5 mmol/L (0.0-2.0) 05/31/16 07:55 VBG Potassium 3.6 mmol/L (3.6-5.2) 05/31/16 07:55 A-a O2 Difference 22.0 mm/Hg 05/31/16 11:35 Respiratory Index 0.3 05/31/16 11:35 Sodium 137.0 mmol/l (132-148) 05/31/16 11:35 Chloride 109.0 mmol/L (98-107) H 05/31/16 11:35 Glucose 254 mg/dl (75-110) H 05/31/16 11:35 Lactate 0.7 mmol/L (0.7-2.1) 05/31/16 11:35 FiO2 21.0 % 05/31/16 11:35 Sodium 138 mmol/L (132-148) 06/04/16 06:30 Potassium 3.1 mmol/L (3.6-5.2) L 06/04/16 06:30 Chloride 101 mmol/L (98-107) 06/04/16 06:30 Carbon Dioxide 24 mmol/L (22-30) 06/04/16 06:30 Anion Gap 16 (10-20) 06/04/16 06:30 BUN 5 mg/dL (9-20) L 06/04/16 06:30 Creatinine 0.4 MG/DL (0.8-1.5) L 06/04/16 06:30 Est GFR ( Amer) > 60 06/04/16 06:30 Est GFR (Non-Af Amer) > 60 06/04/16 06:30 POC Glucose (mg/dL) 202 mg/dL (65-110) H 06/04/16 11:30 Random Glucose 147 mg/dL (75-110) H 06/04/16 06:30 Hemoglobin A1c 11.0 % (4.2-6.5) H 06/01/16 06:12 Calcium 8.3 mg/dl (8.6-10.4) L 06/04/16 06:30 Total Bilirubin 1.4 mg/dL (0.2-1.3) H 06/04/16 06:30 GGT 34 U/L (8-78) 06/03/16 05:58 AST 16 U/L (17-59) L 06/04/16 06:30 ALT 10 U/L (21-72) L D 06/04/16 06:30 Alkaline Phosphatase 81 U/L (38-126) 06/04/16 06:30 Total Protein 6.3 g/dL (6.3-8.3) 06/04/16 06:30 Albumin 3.2 g/dL (3.5-5.0) L 06/04/16 06:30 Globulin 3.1 gm/dL (2.2-3.9) 06/04/16 06:30 Albumin/Globulin Ratio 1.0 (1.0-2.1) 06/04/16 06:30 Triglycerides 857 mg/dL (0-149) H D 06/04/16 06:30 Cholesterol 553 mg/dL (0-199) H 06/03/16 05:58 LDL Cholesterol Direct 69 mg/dL (0-129) 06/03/16 05:58 HDL Cholesterol 28 mg/dL (30-70) L 06/03/16 05:58 Lipase 1723 U/L (23-300) H 06/03/16 05:58 TSH 3rd Generation 0.64 mIU/L (0.46-4.68) 06/03/16 05:58 Arterial Blood Potassium 3.4 mmol/L (3.6-5.2) L 05/31/16 11:35 Venous Blood Potassium 3.6 mmol/L (3.6-5.2) 05/31/16 07:55 Urine Color Yellow (YELLOW) 05/31/16 04:11 Urine Clarity Clear (Clear) 05/31/16 04:11 Urine pH 6.0 (5.0-8.0) 05/31/16 04:11 Ur Specific Law[place] 1.036 (1.003-1.030) H 05/31/16 04:11 Urine Protein 1+ mg/dL (NEGATIVE) H 05/31/16 04:11 Urine Glucose (UA) 3+ mg/dL (Normal) H 05/31/16 04:11 Urine Ketones 2+ mg/dL (NEGATIVE) H 05/31/16 04:11 Urine Blood Negative (NEGATIVE) 05/31/16 04:11 Urine Nitrate Negative (NEGATIVE) 05/31/16 04:11 Urine Bilirubin Negative (NEGATIVE) 05/31/16 04:11 Urine Urobilinogen Normal mg/dL (0.2-1.0) 05/31/16 04:11 Ur Leukocyte Esterase Neg Luis/uL (Negative) 05/31/16 04:11 Urine WBC (Auto) 1 /hpf (0-5) 05/31/16 04:11 Urine RBC (Auto) < 1 /hpf (0-3) 05/31/16 04:11 Ur Squamous Epith Cells 1 /hpf (0-5) 05/31/16 04:11 Serum Ketones Small (NEGATIVE) 05/31/16 07:51 Attending/Attestation - Attestation I have personally seen and examined this patient.: Yes I have fully participated in the care of the patient.: Yes I have reviewed all pertinent clinical information, including history, physical exam and plan: Yes Notes (Text): 06/05/16 13:09 Patient was seen and examined at bedside with the resident He denies any abdominal pain and he is tolerating his diet I discussed with GI Dr. Elizondo Patient is clear for discharge We will discharge the patient on TriCor, simvastatin and insulin Patient to follow-up with the [facility]. I agree with the above discharge note by the resident
--- NOTE | 2016-06-06 09:30 | PN ---
DATE: 06/03/2016 In room 652. This is a 41-year-old male with diffuse abdominal pain, nausea, dyspepsia and vomiting and has been e valuated to have acute pancreatitis and is now being followed closely for metabolic management. He a lso has marked dyslipidemia and has received vigorous IV hydration as noted thereof. He is ____ as g iven. His latest chemistry showed a BUN of ____, sodium 143, potassium 3.7, ____ and creatinine 0.7. His glucose values have ranged from 161 to 137 mg/dL. His hemoglobin A1c is ____ and clearly indic ative of suboptimal metabolic control of his diabetic condition even prior to his admission. The lip id ____ declining and the triglycerides are down to ____ and the cholesterol is ____ as noted. There is also significant history of chronic alcoholism at this time and recent acute alcoholic intoxifica tion ____ the patient ____ contributing to ____ marked dyslipidemia and supervening acute pancreatiti s. ____ in the meantime as 6 units ____. We will continue with the basal insulin given as Novolin NPH ____ and we will continue the regular insulin coverage as given. ____ oral intake is advanced to solid food, we will start him on a basal and bolus insulin regimen as indicated. ____ the insulin a nalogs are extremely ____ and so we will consider the addition of the older conventional insulin medi cation and we will continue the NPH at bedtime with a Novolin 70/30 premixed insulin regimen given be fore breakfast and dinner as indicated. We will follow and advise accordingly. Es Whaltey MD cc: [id number] TT: 06/03/2016 16:52:13 Confirmation # [id number] Dictation # [id number] tn
== END 2016-06-04 13:40 | disposition home or self-care (01) | DRG 557 ==
LOC: C.ER 03:40 → C.9E 10:45 → C.6T 14:33 → OBSVTOIN 06-02 09:34
PROVIDERS: ADMIT Internal Medicine; ATTEND Internal Medicine
DX: K85.20 Alcohol induced acute pancreatitis without necrosis or infection (principal); E11.00 Type 2 diabetes mellitus with hyperosmolarity without nonketotic hyperglycemic-hyperosmolar coma (NKHHC); E87.2 Acidosis; K76.0 Fatty (change of) liver, not elsewhere classified; E86.0 Dehydration; K86.0 Alcohol-induced chronic pancreatitis; E11.65 Type 2 diabetes mellitus with hyperglycemia; E78.1 Pure hyperglyceridemia; E78.5 Hyperlipidemia, unspecified; F17.210 Nicotine dependence, cigarettes, uncomplicated; E78.00 Pure hypercholesterolemia, unspecified; Z79.4 Long term (current) use of insulin; Z83.3 Family history of diabetes mellitus; Z82.49 Family history of ischemic heart disease and other diseases of the circulatory system; F10.20 Alcohol dependence, uncomplicated

== ENCOUNTER 2016-12-03 15:10 | Emergency (ER) | payer OTHER ==
--- NOTE | 2016-12-03 16:00 | C.PDOC ---
History Of Present Illness 41 yo male come in for evaluation of Left sided lower back pain gradually developed for past few days after lifted heavy TV at home. Pt sts, pain is gradually worsen, localized, non-radiating and worse with movement. Otherwise, pt denies known direct trauma or injury, fever, chills, abd. pain, N/V/D, UTI sx , saddle anesthesia, incontinence,. denies weakness, sensory or vascular deficits to /L LEs. Ambulate to ED for evaluation, not in any apparent distress. Time Seen by Provider: 12/03/16 15:21 Chief Complaint (Nursing): Back Pain History Per: Patient History/Exam Limitations: no limitations Onset/Duration Of Symptoms: Days Current Symptoms Are (Timing): Worse Quality Of Discomfort: "Pain" Previous Symptoms: Back Pain Associated Symptoms: denies: Incontinence, New Weakness, New Numbness Exacerbating Factor(s): Movement Additional History Per: Patient Past Medical History Reviewed: Historical Data, Nursing Documentation, Vital Signs Vital Signs: Last Vital Signs Temp 98.2 F 12/03/16 17:05 Pulse 78 12/03/16 17:05 Resp 16 12/03/16 17:05 BP 121/76 12/03/16 17:05 Pulse Ox 99 12/03/16 17:23 - Medical History PMH: Diabetes Surgical History: Appendectomy (2000) Family History: States: Unknown Family Hx - Social History Hx Alcohol Use: Yes Hx Substance Use: No - Immunization History Hx Tetanus Toxoid Vaccination: No Hx Influenza Vaccination: No Hx Pneumococcal Vaccination: No Review Of Systems Constitutional: Negative for: Fever, Chills Gastrointestinal: Negative for: Nausea, Vomiting, Diarrhea Genitourinary: Negative for: Dysuria, Frequency, Hematuria Musculoskeletal: Positive for: Back Pain (left-sided, lower ) Neurological: Negative for: Weakness, Numbness, Other (saddles anesthesia ) Physical Exam - Physical Exam Appears: Well, Non-toxic, No Acute Distress Skin: Normal Color, Warm, Dry, No Rash Eye(s): bilateral: PERRL Nose: No Flaring Oral Mucosa: Moist Throat: No Erythema Neck: Supple Gastrointestinal/Abdominal: Soft, No Tenderness, No Distention, No Guarding Back: No CVA Tenderness, No Vertebral Tenderness, Muscle Spasm (Left lumbar paraspinal), Paraspinal Tenderness (Left lumbar paraspinal tenderness. NO midline tenderness. No skin changes.), No Straight Leg Raising Extremity: Normal ROM, No Pedal Edema, No Deformity Neurological/Psych: Oriented x3, Normal Speech, Normal Motor, Normal Sensation, Normal Reflexes ED Course And Treatment O2 Sat by Pulse Oximetry: 99 (on RA) Pulse Ox Interpretation: Normal Progress Note: Urinalysis ordered and reviewed. Cirpoflaxin PO, Toradol IM, Valium PO administered. On re-evauation, pt is afebrile, hemodynamicaly stable. NOn-toxic. Ambulatory in ED with stable gait. Neck: SUpple. ABd: benign, (-) guarding, (-) rebound. Back: (-) CVA tenderness. Neuorlogicaly intact. UA results review(+)WBC, (+) glucose. FSBS 235, pt has hx of DM. Pt has clinical findings c/w left sided lumbar strain, UTI, hyperglycemia. Pt advised. ref. to F/u with PMD in 2-3 days for re-eavl. return if any new changes. Disposition Counseled Patient/Family Regarding: Diagnosis, Need For Followup, Rx Given - Disposition Referrals: [facility] [Outside] Disposition: HOME/ ROUTINE Disposition Time: 16:56 Condition: STABLE Additional Instructions: LIght duty to lower back, avoid heavy lifting, bending, etc. Take pain medication as need as prescribed Follow up with PMD in 2-3 days for re-evaluation. Return to ED if any worsening or new changes. Prescriptions: Ciprofloxacin [Cipro] 1 tab PO BID #14 tab Methocarbamol [Robaxin] 500 mg PO TID #14 tab traMADol [Ultram] 50 mg PO TID #7 tab Instructions: Urinary Tract Infection in Men (ED), Back Pain (ED), Diabetic Hyperglycemia (ED) Forms: [employer] (Salvadorean) Print Language: LATVIAN - Clinical Impression Clinical Impression: Low back strain, UTI (urinary tract infection), Hyperglycemia due to type 2 diabetes mellitus - PA / GLOVE CUFFER / Resident Statement MD/DO has reviewed & agrees with the documentation as recorded. - Scribe Statement The provider has reviewed the documentation as recorded by the Scribe (Venus Osborn) All medical record entries made by the Scribe were at my direction and personally dictated by me. I have reviewed the chart and agree that the record accurately reflects my personal performance of the history, physical exam, medical decision making, and the department course for this patient. I have also personally directed, reviewed, and agree with the discharge instructions and disposition.
[2016-12-03 16:29] LABS: RBC URINE 1 /hpf (0-3); URINE BACTERIA RARE (<OCC); WBC URINE 12 /hpf (0-5)
[2016-12-03 16:32] LABS: URINE BILIRUBIN NEGATIVE (NEGATIVE); URINE BLOOD NEGATIVE (NEGATIVE); URINE COLOR YELLOW (YELLOW); URINE GLUCOSE (UA) 500 mg/dL (Normal); URINE KETONE TRACE mg/dL (NEGATIVE); URINE PROTEIN NEGATIVE (NEGATIVE)
[2016-12-03 16:33] LABS: URINE LEUKOCYTE ESTERASE NEGATIVE Leu/uL (Negative); URINE UROBILINOGEN 0.2 mg/dL (0.2-1.0)
[2016-12-03 17:06] VITALS: BP 121/76; PULSE 78; RESP 16; TEMP 98.2
[2016-12-03 17:15] VITALS: O2SAT 99
== END 2016-12-03 17:05 | disposition home or self-care (01) ==
LOC: C.ER 15:10
DX: S39.012A Strain of muscle, fascia and tendon of lower back, initial encounter (principal); X50.0XXA Overexertion from strenuous movement or load, initial encounter; N39.0 Urinary tract infection, site not specified; E11.65 Type 2 diabetes mellitus with hyperglycemia
CPT/HCPCS: 81001; 82948; 96372; 99284; J1885

== ENCOUNTER 2018-03-07 22:40 | Emergency (ER) | payer SELFPAY ==
[2018-03-07] MEDS ORDERED: Tmp-Smz 800 mg-160 mg DS Tab PO STA (23:49)
--- NOTE | 2018-03-07 23:55 | C.PDOC ---
History Of Present Illness 43 year old male presents to the ER with a complaint of a painful mass to the buttock for the past 3 days that has progressively worsened today. Patient has been unable to sit due to pain. Denies drainage, bleeding, or constipation. Time Seen by Provider: 03/07/18 23:41 Chief Complaint (Nursing): Abnormal Skin Integrity History Per: Patient History/Exam Limitations: no limitations Onset/Duration Of Symptoms: Days (3) Current Symptoms Are (Timing): Still Present Location Of Injury: Left: Buttock Recent travel outside of the [place]: No Past Medical History Reviewed: Historical Data, Nursing Documentation, Vital Signs Vital Signs: Last Vital Signs Temp 99.2 F 03/07/18 23:29 Pulse 81 03/07/18 23:29 Resp 20 03/07/18 23:29 BP 119/71 03/07/18 23:29 Pulse Ox 98 03/07/18 23:29 - Medical History PMH: Diabetes Denies: Chronic Kidney Disease Surgical History: Appendectomy (2000) Family History: States: Unknown Family Hx - Social History Hx Alcohol Use: Yes Hx Substance Use: No - Immunization History Hx Tetanus Toxoid Vaccination: No Hx Influenza Vaccination: No Hx Pneumococcal Vaccination: No Review Of Systems Constitutional: Negative for: Fever, Chills Skin: Positive for: Other (Painful mass to left buttock) Physical Exam - Physical Exam Appears: Non-toxic Skin: Warm, Dry Head: Atraumatic, Normacephalic Eye(s): bilateral: Normal Inspection Rectal: Other (Small area of erythema with nontender pea sized indurated nonfluctuant abscess to left buttock, no perianal involvement, no hemorrhoids or tenderness on digital exam) Neurological/Psych: Oriented x3, Normal Speech ED Course And Treatment O2 Sat by Pulse Oximetry: 98 (Room air) Pulse Ox Interpretation: Normal Progress Note: Patient is resting comfortably in the ER in no acute distress, vitals are stable. Pt is pen alergic so will start on bactrim and motrin and discharge home with instructions to follow up in 2 days for wound check. Disposition Counseled Patient/Family Regarding: Diagnosis, Need For Followup, Rx Given - Disposition Referrals: [facility] [Outside] Disposition: HOME/ ROUTINE Disposition Time: 23:51 Condition: STABLE Additional Instructions: Please do Sitz baths / Apply warm compress to area Take medication as directed Follow up in 2 days for wound check/ Regresa aqui en 2 ochoa Return to ER if worse Prescriptions: Ibuprofen [Motrin Tab] 800 mg PO QID #30 tab Sulfamethoxazole/Trimethoprim [Bactrim DS 800 mg-160 mg] 1 tab PO BID #14 tab Instructions: Boil (DC) Forms: [employer] (Sudanese) Print Language: THAI - Clinical Impression Clinical Impression: Boil of buttock - PA / SUSTAINABLE SYSTEMS ANALYST / Resident Statement MD/DO has reviewed & agrees with the documentation as recorded. - Scribe Statement The provider has reviewed the documentation as recorded by the Scribe Christopher Chan All medical record entries made by the Dioibseun were at my direction and personally dictated by me. I have reviewed the chart and agree that the record accurately reflects my personal performance of the history, physical exam, medical decision making, and the department course for this patient. I have also personally directed, reviewed, and agree with the discharge instructions and disposition.
[2018-03-08 02:44] VITALS: BP 119/71; PULSE 81; RESP 20; TEMP 99.2; O2SAT 98
== END 2018-03-08 00:30 | disposition home or self-care (01) ==
LOC: C.ER 22:40
DX: L02.32 Furuncle of buttock (principal)